=== PATIENT | female | born 1935 | race Asian ===

== ENCOUNTER 2021-02-08 08:41 | Emergency (ER) | payer SELFPAY ==
[~2021-02-08] VITALS: Ht 152.4 cm; Wt 47.6 kg
[2021-02-08 08:51] VITALS: BP_SYST 140
--- NOTE | 2021-02-08 09:01 | NUR ---
AMBULATED TO BED1
--- NOTE | 2021-02-08 09:05 | NUR ---
ER at bedside examining patient.
--- NOTE | 2021-02-08 09:05 | NUR ---
Pt. bib daughter with concern of skin abrasion to left payne that is not healing, pt. states mild pain, fell about 10 days ago has been using antibiotic ointments but not healing, color and temp. comparable to right leg, no swelling noted
--- NOTE | 2021-02-08 09:17 | NUR ---
radiology at bedside
[2021-02-08 09:23] LABS: BASOPHILS % (AUTO) 0.9 % (0.0-2.0); EOSINOPHILS # (AUTO) 0.2 K/uL (0.0-0.4); EOSINOPHILS % (AUTO) 7.6 % (0.0-4.0); HEMATOCRIT 33.5 % (36-48); HEMOGLOBIN 11.1 g/dL (12.0-16.0); LYMPHOCYTES # (AUTO) 1.3 K/uL (1.0-5.5); MEAN CORPUSCULAR HEMOGLOBIN 29 pg (27-31); MEAN CORPUSCULAR HGB CONC 33 % (32-36); MEAN CORPUSCULAR VOLUME 87 fL (79.0-98.0); MONOCYTES # (AUTO) 0.2 K/uL (0.0-1.0); MONOCYTES % (AUTO) 7.9 % (1.7-9.3); NEUTROPHILS # (AUTO) 1.1 K/uL (1.8-7.7); NEUTROPHILS % (AUTO) 38.6 % (40.0-70.0); PLATELET COUNT (AUTO) 156 K/uL (130-430); RED BLOOD CELL COUNT(AUTO) 3.86 MIL/uL (4.2-6.2); WHITE BLOOD COUNT (AUTO) 2.8 K/uL (4.8-10.8)
[2021-02-08 09:36] LABS: ANION GAP 5 (5-15); CALCIUM 8.9 mg/dL (8.4-11.0); CHLORIDE 104 mmol/L (98-107); CREATININE 1.17 mg/dL (0.55-1.30); GLUCOSE 102 mg/dL (70-99); POTASSIUM 3.6 mmol/L (3.5-5.1); SODIUM SERUM 142 mmol/L (136-145); UREA NITROGEN, BLOOD 19 mg/dL (8-21)
[2021-02-08 09:38] LABS: INR 0.9 (0.8-1.2); PROTHROMBIN TIME 9.8 SECS (9.5-12.5)
[2021-02-08 09:40] LABS: ALANINE AMINOTRANSFERASE 22 U/L (12-78); ALBUMIN 3.6 g/dL (3.4-4.8); ASPARTATE AMINOTRANSFERASE 19 U/L (10-37); TOTAL BILIRUBIN 0.3 mg/dL (0.0-1.0)
[2021-02-08 10:09] LABS: C-REACTIVE PROTEIN QUANT < 0.2 mg/dL (0-0.5)
[2021-02-08] MEDS ORDERED: CLIN-22 PO (10:23)
[2021-02-08] MEDS ORDERED: NEOM28.36 TP (10:23)
[2021-02-08 10:51] VITALS: BP_SYST 141
--- NOTE | 2021-02-08 10:52 | NUR ---
Patient given written and verbal discharge instructions and verbalizes understanding. Dr. Noguera discussed with patient the results and treatment provided. Patient in stable condition. ID arm band removed. Rx of clindamycin and neosporin ointment given. Patient educated on pain management and to follow up with PMD. Pain Scale 0. Opportunity for questions provided and answered. Medication side effect fact sheet provided.
== END 2021-02-08 10:51 | disposition home or self-care (01) ==
LOC: SED 08:41
DX: L97.229 Non-pressure chronic ulcer of left calf with unspecified severity (principal)
CPT/HCPCS: 36415; 73590-TC; 80053; 83605; 85025; 85610-TC; 85730-TC; 86140; 99284